=== PATIENT | female | born 1980 | race Caucasian/White ===

== ENCOUNTER 2017-11-09 17:51 | Emergency (ER) | payer MEDICAID ==
[~2017-11-09] VITALS: Ht 165.1 cm; Wt 133.7 kg
[~2017-11-09 17:51] MED LIST: CIPR-230 PO; CYCL-1 PO; METR500T4 PO; ONDA8TAB9 PO
[2017-11-09 19:49] LABS: BASOPHILS # (AUTO) 0.1 X10'3 (0-0.2); BASOPHILS % (AUTO) 0.7 % (0-1); EOSINOPHILS # (AUTO) 0.1 X10'3 (0-0.9); EOSINOPHILS % (AUTO) 1.1 % (0-6); HEMATOCRIT 41.6 % (35.0-45.0); HEMOGLOBIN 14.2 g/dl (12.0-16.0); LYMPHOCYTES # (AUTO) 4.6 X10'3 (1.1-4.8); LYMPHOCYTES % (AUTO) 34.4 % (21-51); MEAN CORPUSCULAR HEMOGLOBIN 30.3 PG (27.0-31.0); MEAN CORPUSCULAR HGB CONC 34.2 % (33.0-36.5); MEAN CORPUSCULAR VOLUME 88.8 FL (78-98); MEAN PLATELET VOLUME 7.8 FL (7.4-10.4); MONOCYTES # (AUTO) 0.5 X10'3 (0-0.9); MONOCYTES % (AUTO) 4.1 % (2-12); NEUTROPHILS # (AUTO) 7.9 X10'3 (1.8-7.7); NEUTROPHILS % (AUTO) 59.7 % (42-75); PLATELET COUNT 317 X10'3 (140-440); RED BLOOD COUNT 4.69 X10'6 (4.20-5.60); RED CELL DISTRIBUTION WIDTH 13.3 % (11.5-14.5); WHITE BLOOD COUNT 13.3 X10'3 (4.5-11.0)
[2017-11-09 19:56] LABS: INR 0.9 INR; PROTHROMBIN TIME 9.6 SECONDS (9.0-12.0)
[2017-11-09 20:02] LABS: ALANINE AMINOTRANSFERASE 66 U/L (12-78); ALBUMIN 3.4 G/DL (3.4-5.0); ALBUMIN/GLOBULIN RATIO 0.8 (1.1-1.5); ALKALINE PHOSPHATASE 64 IU/L (46-116); ANION GAP 8 (8-16); ASPARTATE AMINO TRANSFERASE 31 U/L (10-37); BILIRUBIN,TOTAL 0.2 MG/DL (0.1-1.0); BLOOD UREA NITROGEN 12 MG/DL (7-18); CALCIUM 8.9 MG/DL (8.5-10.1); CHLORIDE 105 MMOL/L (99-107); GLUCOSE 118 MG/DL (70-104); SODIUM 139 MMOL/L (135-145); TOTAL CARBON DIOXIDE 25.7 MMOL/L (24-32); TOTAL PROTEIN 7.6 G/DL (6.4-8.2); eGFR 80 ML/MIN
[2017-11-09 20:41] LABS: CLARITY,URINE SLIGHTLY CLOUDY (Clear); COLOR,URINE YELLOW (Yellow); GLUCOSE, URINE NEGATIVE (Neg); KETONES,URINE NEGATIVE (Neg); LEUKOCYTE ESTERASE ,URINE NEGATIVE (Neg); NITRITES, URINE NEGATIVE (Neg); OCCULT BLOOD,URINE NEGATIVE (Neg); PROTEIN,URINE NEGATIVE (Neg); UROBILINOGEN,URINE 0.2 E.U/dL (0.2-1.0)
[2017-11-09 20:45] LABS: UA COLLECTION TYPE CLN CATCH MIDSTREAM
[2017-11-09 20:50] LABS: BACTERIA,URINE 2+ /HPF (Neg); MUCUS STRANDS FEW /LPF (Neg); RBC,URINE 0-2 /HPF (0-2); SQUAMOUS EPITHELIAL CELL,UR MANY /LPF (FEW); WBC,URINE 0-4 /HPF (0-4)
[2017-11-09] MEDS ORDERED: METR500T4 PO (20:57)
[2017-11-09] MEDS ORDERED: HYDR-565 PO (20:57)
[2017-11-09] MEDS ORDERED: CIPR-230 PO (20:57)
[2017-11-09 21:00] VITALS: BP 158/95
== END 2017-11-09 21:13 | disposition home or self-care (01) ==
LOC: ER 17:51
DX: K57.92 Diverticulitis of intestine, part unspecified, without perforation or abscess without bleeding (principal); F12.10 Cannabis abuse, uncomplicated; I10 Essential (primary) hypertension; K21.9 Gastro-esophageal reflux disease without esophagitis; M19.90 Unspecified osteoarthritis, unspecified site
CPT/HCPCS: 36415; 80053; 81001; 85025; 85610

== ENCOUNTER 2018-01-03 17:42 | Emergency (ER) | payer MEDICAID ==
[~2018-01-03] VITALS: Ht 165.1 cm; Wt 142.9 kg
[2018-01-03 18:22] LABS: BASOPHILS # (AUTO) 0.1 X10'3 (0-0.2); BASOPHILS % (AUTO) 0.8 % (0-1); EOSINOPHILS # (AUTO) 0.2 X10'3 (0-0.9); EOSINOPHILS % (AUTO) 1.1 % (0-6); HEMATOCRIT 44.6 % (35.0-45.0); HEMOGLOBIN 15.4 g/dl (12.0-16.0); LYMPHOCYTES # (AUTO) 4.2 X10'3 (1.1-4.8); LYMPHOCYTES % (AUTO) 30.2 % (21-51); MEAN CORPUSCULAR HEMOGLOBIN 29.9 PG (27.0-31.0); MEAN CORPUSCULAR HGB CONC 34.6 % (33.0-36.5); MEAN CORPUSCULAR VOLUME 86.5 FL (78-98); MEAN PLATELET VOLUME 7.9 FL (7.4-10.4); MONOCYTES # (AUTO) 0.4 X10'3 (0-0.9); MONOCYTES % (AUTO) 2.8 % (2-12); NEUTROPHILS % (AUTO) 65.1 % (42-75); PLATELET COUNT 346 X10'3 (140-440); RED BLOOD COUNT 5.15 X10'6 (4.20-5.60); RED CELL DISTRIBUTION WIDTH 13.3 % (11.5-14.5); WHITE BLOOD COUNT 13.9 X10'3 (4.5-11.0)
[2018-01-03 18:24] LABS: URINE HCG NEGATIVE (NEG)
[2018-01-03 18:27] LABS: CLARITY,URINE CLOUDY (Clear); COLOR,URINE YELLOW (Yellow); GLUCOSE, URINE NEGATIVE (Neg); KETONES,URINE NEGATIVE (Neg); LEUKOCYTE ESTERASE ,URINE NEGATIVE (Neg); NITRITES, URINE NEGATIVE (Neg); OCCULT BLOOD,URINE NEGATIVE (Neg); PH,URINE 5.5 (4.8-8.0); PROTEIN,URINE NEGATIVE (Neg); UROBILINOGEN,URINE 0.2 E.U/dL (0.2-1.0)
[2018-01-03 18:31] LABS: UA COLLECTION TYPE CLN CATCH MIDSTREAM
[2018-01-03 18:32] LABS: INR 0.9 INR; PROTHROMBIN TIME 9.5 SECONDS (9.0-12.0)
[2018-01-03 18:36] LABS: ALANINE AMINOTRANSFERASE 50 U/L (12-78); ALBUMIN 3.5 G/DL (3.4-5.0); ALBUMIN/GLOBULIN RATIO 0.7 (1.1-1.5); ALKALINE PHOSPHATASE 85 IU/L (46-116); ANION GAP 11 (8-16); ASPARTATE AMINO TRANSFERASE 27 U/L (10-37); BILIRUBIN,TOTAL 0.2 MG/DL (0.1-1.0); BLOOD UREA NITROGEN 10 MG/DL (7-18); BUN/CREATININE RATIO 10.9 (6.6-38.0); CALCIUM 8.8 MG/DL (8.5-10.1); CHLORIDE 103 MMOL/L (99-107); CREATININE 0.92 MG/DL (0.40-0.90); GLUCOSE 174 MG/DL (70-104); POTASSIUM 4.2 MMOL/L (3.5-5.1); SODIUM 139 MMOL/L (135-145); TOTAL CARBON DIOXIDE 24.9 MMOL/L (24-32); TOTAL PROTEIN 8.2 G/DL (6.4-8.2); eGFR 68 ML/MIN
[2018-01-03 18:56] LABS: BACTERIA,URINE 3+ /HPF (Neg); RBC,URINE NONE SEEN /HPF (0-2); SQUAMOUS EPITHELIAL CELL,UR MANY /LPF (FEW); WBC,URINE 0-4 /HPF (0-4)
[2018-01-03] MEDS ORDERED: HYDR-565 PO (20:19)
[2018-01-03] MEDS ORDERED: HYDROcodone/acetaminophen 10/325mg tab PO ONE (20:20)
[2018-01-03 20:36] VITALS: BP 129/89
== END 2018-01-03 20:38 | disposition home or self-care (01) ==
LOC: ER 17:42
DX: R10.32 Left lower quadrant pain (principal); F12.90 Cannabis use, unspecified, uncomplicated; Z87.19 Personal history of other diseases of the digestive system; I10 Essential (primary) hypertension; K21.9 Gastro-esophageal reflux disease without esophagitis; M19.90 Unspecified osteoarthritis, unspecified site; Z79.899 Other long term (current) drug therapy
CPT/HCPCS: 36415; 80053; 81001; 81025; 85025; 85610; 99284

== ENCOUNTER 2018-02-12 12:59 | Emergency (ER) | payer MEDICAID ==
[~2018-02-12] VITALS: Ht 165.1 cm; Wt 144.0 kg
[2018-02-12] MEDS ORDERED: METR500T4 PO (13:42)
[2018-02-12] MEDS ORDERED: CIPR-230 PO (13:42)
[2018-02-12 13:49] VITALS: BP 161/118
== END 2018-02-12 13:50 | disposition home or self-care (01) ==
LOC: ER 13:00
DX: K57.92 Diverticulitis of intestine, part unspecified, without perforation or abscess without bleeding (principal); I10 Essential (primary) hypertension; K21.9 Gastro-esophageal reflux disease without esophagitis; F12.90 Cannabis use, unspecified, uncomplicated; Z98.890 Other specified postprocedural states; Z79.2 Long term (current) use of antibiotics; Z79.899 Other long term (current) drug therapy
CPT/HCPCS: 99283

== ENCOUNTER 2023-12-02 14:43 | Emergency (ER) | payer MEDICAID ==
[~2023-12-02] VITALS: Ht 167.6 cm; Wt 115.9 kg
[~2023-12-02 14:43] MED LIST changes: +CIPR-202 PO; -CIPR-230 PO; +METR-159 PO; -METR500T4 PO
[2023-12-02 14:46] VITALS: BP 138/89; PULSE 94; RESP 16; TEMP 98; O2SAT 99
== END 2023-12-02 16:13 ==
LOC: ER 14:43
DX: Z04.1 Encounter for examination and observation following transport accident (principal); I10 Essential (primary) hypertension; K21.9 Gastro-esophageal reflux disease without esophagitis; M19.90 Unspecified osteoarthritis, unspecified site; F12.90 Cannabis use, unspecified, uncomplicated; Z79.2 Long term (current) use of antibiotics; Z79.899 Other long term (current) drug therapy; V89.2XXA Person injured in unspecified motor-vehicle accident, traffic, initial encounter; Y93.89 Activity, other specified; Y92.89 Other specified places as the place of occurrence of the external cause; Y99.8 Other external cause status
CPT/HCPCS: 99283

== ENCOUNTER 2024-02-21 21:39 | Inpatient (IN) | payer MEDICAID ==
[~2024-02-21] VITALS: Ht 167.6 cm; Wt 116.8 kg
[2024-02-21 22:18] LABS: BILIRUBIN,URINE MODERATE (Neg); CLARITY,URINE CLOUDY (Clear); COLOR,URINE YELLOW (Yellow); GLUCOSE, URINE NEGATIVE (Neg); KETONES,URINE TRACE mg/dl (Neg); LEUKOCYTE ESTERASE ,URINE NEGATIVE (Neg); OCCULT BLOOD,URINE TRACE-INTACT (Neg); PH,URINE 5.5 (4.8-8.0); PROTEIN,URINE 100 mg/dl (Neg)
[2024-02-21 22:19] LABS: NITRITES, URINE NEGATIVE (Neg); UA COLLECTION TYPE CLN CATCH MIDSTREAM; URINE HCG NEGATIVE (NEG)
[2024-02-21 22:20] LABS: BASOPHILS % (AUTO) 0.3 % (0-1); EOSINOPHILS # (AUTO) 0.1 X10'3 (0-0.9); EOSINOPHILS % (AUTO) 0.7 % (0-6); HEMATOCRIT 48.4 % (35.0-45.0); HEMOGLOBIN 16.2 g/dl (12.0-16.0); LYMPHOCYTES # (AUTO) 3.1 X10'3 (1.1-4.8); LYMPHOCYTES % (AUTO) 23.5 % (21-51); MEAN CORPUSCULAR HGB CONC 33.4 g/dL (33.0-36.5); MEAN CORPUSCULAR VOLUME 89.8 FL (78-98); MEAN PLATELET VOLUME 7.6 FL (7.4-10.4); MONOCYTES # (AUTO) 0.5 X10'3 (0-0.9); MONOCYTES % (AUTO) 4.1 % (2-12); NEUTROPHILS # (AUTO) 9.4 X10'3 (1.8-7.7); NEUTROPHILS % (AUTO) 71.4 % (42-75); PLATELET COUNT 371 X10'3 (140-440); RED BLOOD COUNT 5.39 X10'6 (4.20-5.60); WHITE BLOOD COUNT 13.1 X10'3 (4.5-11.0)
[2024-02-21 22:24] LABS: BACTERIA,URINE 2+ /HPF (Neg); MUCUS STRANDS MANY /LPF (Neg); SQUAMOUS EPITHELIAL CELL,UR MANY /LPF (FEW); TRANSITIONAL EPI CELLS,URINE FEW /HPF
[2024-02-21 22:25] LABS: WBC CLUMPS,URINE FEW /HPF (NEGATIVE)
[2024-02-21 22:34] LABS: ALANINE AMINOTRANSFERASE 23 U/L (12-78); ALBUMIN 3.4 G/DL (3.4-5.0); ALBUMIN/GLOBULIN RATIO 0.7 (1.1-1.5); ALKALINE PHOSPHATASE 78 IU/L (46-116); ANION GAP 11 (8-16); ASPARTATE AMINO TRANSFERASE 14 U/L (10-37); BILIRUBIN,TOTAL 0.5 MG/DL (0.1-1.0); BLOOD UREA NITROGEN 11 MG/DL (7-18); BUN/CREATININE RATIO 11.2 (10.0-20.0); CALCIUM 8.9 MG/DL (8.5-10.1); CHLORIDE 102 MMOL/L (99-107); CREATININE 0.98 MG/DL (0.40-0.90); GLUCOSE 139 MG/DL (70-104); LIPASE 32 U/L (16-77); POTASSIUM 3.5 MMOL/L (3.5-5.1); SODIUM 138 MMOL/L (135-145); TOTAL CARBON DIOXIDE 25.5 MMOL/L (24-32); eCRCL 68 ML/MIN; eGFR 61 ML/MIN
[2024-02-21] MEDS ORDERED: iohexol 350MG/ML 100ml bottle IV ONE (23:44)
[2024-02-22] VITALS (9 sets, daily range): BP systolic 134–157; BP diastolic 80–92; PULSE 79–92; RESP 14–22; TEMP 97.9; O2SAT 92–99
[2024-02-22] MEDS: ondansetron/PF 4mg/2ml inj IV ONE (00:14)
[2024-02-22] MEDS: HYDROmorphone 1 mg/ml syringe IV ONE ×2 (00:17→05:22)
[2024-02-22] MEDS: normal saline 1000ml 1,000 ML IV ONE (00:53)
[2024-02-22] MEDS: CefTRIAXone/D5W-Rocephin 1gm 50 ML IV ONE (00:53)
[2024-02-22] MEDS ORDERED: LISI20TA28 PO (02:00)
[2024-02-22] MEDS: metroNIDAZOLE-Flagyl 500mg/NS 100 ML IV STA (02:21)
[2024-02-22] MEDS: LIDOcaine 2% Viscous 15ml cup MM PRN (02:42)
[2024-02-22] MEDS: midazolam 1 mg/ML 2ml injection IV ONE (02:43)
[2024-02-22] MEDS ORDERED: mag hydrox/Alum hydrox/simeth 30ml oral suspension PO PRN (05:30)
[2024-02-22] MEDS ORDERED: HYDROmorphone/PF 0.2 MG/ML SYRINGE IV PRN (05:30)
[2024-02-22] MEDS ORDERED: magnesium Cl slow-release 64mg tablet PO PRN (05:30)
[2024-02-22] MEDS ORDERED: ondansetron/PF 4mg/2ml inj IV PRN ×3 (05:30→22:10)
[2024-02-22] MEDS ORDERED: acetaminophen 325mg tablet PO PRN (05:30)
[2024-02-22] MEDS ORDERED: potassium Cl 20 mEq SR tablet PO PRN ×2 (05:30)
[2024-02-22] MEDS: normal saline 1000ml 1,000 ML IV SCH (06:04)
[2024-02-22] MEDS: docusate sod 100mg capsule PO SCH (08:00)
[2024-02-22] MEDS: metroNIDAZOLE-Flagyl 500mg/NS 100 ML IV SCH (10:39)
[2024-02-22] MEDS: lisinopril 10 MG tablet PO ONE (10:52)
[2024-02-22] MEDS ORDERED: morphine 2 MG/ML inj. syringe IV PRN (17:45)
[2024-02-22] MEDS ORDERED: meperidine/PF 25mg/ml syringe IV PRN ×3 (17:45)
[2024-02-22] MEDS ORDERED: morphine 4 MG/ML inj SYRINge IV PRN (17:45)
[2024-02-22] MEDS ORDERED: labetalol 20mg/4ml (5mg/ml) syringe IV PRN (17:45)
[2024-02-22] MEDS ORDERED: proCHLORperazine 10 MG/2 ml inj IV PRN (17:45)
[2024-02-22] MEDS ORDERED: sevoflurane 250ml liquid IH ONE (17:49)
[2024-02-22] MEDS ORDERED: fentaNYL /PF 50mcg/ml 5ml ampule ONE (17:52)
[2024-02-22] MEDS ORDERED: midazolam 1 mg/ML 2ml injection ONE (17:52)
[2024-02-22] MEDS ORDERED: rocuronium 10mg/ml inj IV ONE ×3 (17:54→21:50)
[2024-02-22] MEDS ORDERED: propofol inj 20 ML IV ONE (17:55)
[2024-02-22] MEDS ORDERED: ceFOXitin 1000 MG inj ONE ×2 (18:23)
[2024-02-22] MEDS ORDERED: dexamethasone sod phosphate 4mg/ml inj. ONE (18:33)
[2024-02-22] MEDS: BUPIVAcaine 2.5mg/ml inj 50ml vial (contains preservative) SQ ONE (19:12)
[2024-02-22] MEDS ORDERED: fentaNYL/PF 50MCG/1 ML 2ML syringe ONE (20:39)
[2024-02-22] MEDS ORDERED: acetaminophen 1,000mg/100ml IV 100 ML IV ONE (21:22)
[2024-02-22] MEDS ORDERED: ondansetron/PF 4mg/2ml inj ONE (21:49)
[2024-02-22] MEDS ORDERED: neostigmine methylsulfate 1 MG/ML 10ml vial ONE (21:50)
[2024-02-22] MEDS ORDERED: glycopyrrolate 0.2mg/ml inj ONE (21:50)
[2024-02-22] MEDS ORDERED: ketorolac trometh 30MG/ML vial 30 MG/ML VIAL ONE (21:58)
[2024-02-22] MEDS ORDERED: naloxone 0.4 mg/ml inj IV PRN (22:10)
[2024-02-23] VITALS (11 sets, daily range): BP systolic 119–150; BP diastolic 74–90; PULSE 89–113; RESP 14–21; TEMP 97.2–98.6; O2SAT 91–99
[2024-02-23] MEDS: ringers solution, lacted 1,000 ML IV SCH (00:14)
[2024-02-23] MEDS: BUPIVAcaine 2.5mg/ml inj 50ml vial (contains preservative) ONE (00:14)
[2024-02-23] MEDS: CefTRIAXone/D5W-Rocephin 1gm 50 ML IV SCH (00:27)
[2024-02-23] MEDS: HYDROmorphone inj. 0.5 MG/0.5 ML DISP.SYRIN IV PRN (00:32)
[2024-02-23 07:14] LABS: BASOPHILS # (AUTO) 0.1 X10'3 (0-0.2); BASOPHILS % (AUTO) 0.3 % (0-1); EOSINOPHILS % (AUTO) 0 % (0-6); HEMOGLOBIN 14.6 g/dl (12.0-16.0); LYMPHOCYTES # (AUTO) 1.7 X10'3 (1.1-4.8); LYMPHOCYTES % (AUTO) 10.6 % (21-51); MONOCYTES # (AUTO) 0.6 X10'3 (0-0.9); MONOCYTES % (AUTO) 3.9 % (2-12); NEUTROPHILS % (AUTO) 85.2 % (42-75)
[2024-02-23 07:16] LABS: HEMATOCRIT 45.2 % (35.0-45.0); MEAN CORPUSCULAR HGB CONC 32.3 g/dL (33.0-36.5); MEAN PLATELET VOLUME 8.1 FL (7.4-10.4); NEUTROPHILS # (AUTO) 13.8 X10'3 (1.8-7.7); PLATELET COUNT 359 X10'3 (140-440); RED BLOOD COUNT 5.03 X10'6 (4.20-5.60); RED CELL DISTRIBUTION WIDTH 13.5 % (11.5-14.5); WHITE BLOOD COUNT 16.2 X10'3 (4.5-11.0)
[2024-02-23 07:34] LABS: ALANINE AMINOTRANSFERASE 21 U/L (12-78); ALBUMIN 2.7 G/DL (3.4-5.0); ALBUMIN/GLOBULIN RATIO 0.6 (1.1-1.5); ALKALINE PHOSPHATASE 62 IU/L (46-116); ANION GAP 10 (8-16); ASPARTATE AMINO TRANSFERASE 19 U/L (10-37); BILIRUBIN,TOTAL 0.4 MG/DL (0.1-1.0); BLOOD UREA NITROGEN 10 MG/DL (7-18); BUN/CREATININE RATIO 12.3 (10.0-20.0); CALCIUM 8.4 MG/DL (8.5-10.1); CHLORIDE 104 MMOL/L (99-107); CREATININE 0.81 MG/DL (0.40-0.90); GLUCOSE 118 MG/DL (70-104); MAGNESIUM 1.9 MG/DL (1.5-2.4); PHOSPHORUS 4.9 MG/DL (2.3-4.5); SODIUM 138 MMOL/L (135-145); TOTAL CARBON DIOXIDE 23.9 MMOL/L (24-32); TOTAL PROTEIN 7.2 G/DL (6.4-8.2); eCRCL 82 ML/MIN; eGFR 76 ML/MIN
[2024-02-24] MEDS: HYDROcodone/acetaminophen 10/325mg tab PO PRN (05:45)
[2024-02-24 06:00] VITALS: BP 147/82; PULSE 103; RESP 16; TEMP 98.6; O2SAT 92
[2024-02-24 06:37] LABS: BASOPHILS # (AUTO) 0.1 X10'3 (0-0.2); BASOPHILS % (AUTO) 0.4 % (0-1); EOSINOPHILS # (AUTO) 0.1 X10'3 (0-0.9); EOSINOPHILS % (AUTO) 0.4 % (0-6); HEMOGLOBIN 14.4 g/dl (12.0-16.0); LYMPHOCYTES # (AUTO) 2.5 X10'3 (1.1-4.8); LYMPHOCYTES % (AUTO) 17.8 % (21-51); MEAN CORPUSCULAR HEMOGLOBIN 29.7 PG (27.0-31.0); MEAN CORPUSCULAR HGB CONC 32.8 g/dL (33.0-36.5); MEAN CORPUSCULAR VOLUME 90.5 FL (78-98); MEAN PLATELET VOLUME 7.8 FL (7.4-10.4); MONOCYTES # (AUTO) 0.7 X10'3 (0-0.9); MONOCYTES % (AUTO) 5.2 % (2-12); NEUTROPHILS # (AUTO) 10.6 X10'3 (1.8-7.7); NEUTROPHILS % (AUTO) 76.2 % (42-75); PLATELET COUNT 315 X10'3 (140-440); RED BLOOD COUNT 4.87 X10'6 (4.20-5.60); RED CELL DISTRIBUTION WIDTH 13.8 % (11.5-14.5); WHITE BLOOD COUNT 13.9 X10'3 (4.5-11.0)
[2024-02-24 06:56] LABS: ALANINE AMINOTRANSFERASE 17 U/L (12-78); ALBUMIN 2.7 G/DL (3.4-5.0); ALBUMIN/GLOBULIN RATIO 0.6 (1.1-1.5); ALKALINE PHOSPHATASE 64 IU/L (46-116); ANION GAP 9 (8-16); ASPARTATE AMINO TRANSFERASE 14 U/L (10-37); BILIRUBIN,TOTAL 0.7 MG/DL (0.1-1.0); BLOOD UREA NITROGEN 9 MG/DL (7-18); CALCIUM 8.5 MG/DL (8.5-10.1); CHLORIDE 102 MMOL/L (99-107); CREATININE 0.75 MG/DL (0.40-0.90); GLUCOSE 123 MG/DL (70-104); MAGNESIUM 1.9 MG/DL (1.5-2.4); PHOSPHORUS 3.2 MG/DL (2.3-4.5); POTASSIUM 3.8 MMOL/L (3.5-5.1); SODIUM 136 MMOL/L (135-145); TOTAL CARBON DIOXIDE 24.6 MMOL/L (24-32); TOTAL PROTEIN 7.4 G/DL (6.4-8.2); eCRCL 89 ML/MIN; eGFR 84 ML/MIN
[2024-02-24 08:45] VITALS: RESP 16; O2SAT 92
[2024-02-24 10:00] VITALS: BP_SYST 168; BP_SYST 170; BP_DIAS 78; BP_DIAS 92; PULSE 106; PULSE 127; RESP 14; RESP 18; TEMP 97.9; TEMP 98.4; O2SAT 97
[2024-02-24] MEDS: magnesium hydroxide 30ml (MOM) UD suspension PO PRN (10:34)
[2024-02-24] MEDS: ketorolac trometh 30MG/ML vial 30 MG/ML VIAL IV PRN (10:34)
[2024-02-24] MEDS ORDERED: MAGN400O6 PO (13:54)
[2024-02-24] MEDS ORDERED: AMOX-580 PO (13:54)
[2024-02-24] MEDS ORDERED: HYDR-3965 PO (13:54)
[2024-02-24] MEDS ORDERED: ketorolac trometh 30MG/ML vial 30 MG/ML VIAL IM SCH (14:00)
[2024-02-24 14:08] VITALS: BP 124/86
[2024-02-24] MEDS: hydrALAZINE 20mg/ml inj. IV ONE (14:10)
[2024-02-24 14:46] VITALS: RESP 16
[2024-02-24] MEDS ORDERED: magnesium hydroxide 30ml (MOM) UD suspension PO SCH (20:00)
== END 2024-02-24 15:15 | disposition home or self-care (01) | DRG 227 ==
LOC: ER 21:40 → ED HOLD 02-22 03:13 → ORTHO 4S 02-22 23:15
PROVIDERS: ADMIT Internal Medicine Critical Care Medicine; ATTEND Family Medicine
PROC: 0WJF4ZZ Inspection of Abdominal Wall, Percutaneous Endoscopic Approach (ICD-10-PCS; 2024-02-22)
PROC: 8E0W4CZ Robotic Assisted Procedure of Trunk Region, Percutaneous Endoscopic Approach (ICD-10-PCS; 2024-02-22)
PROC: BW211ZZ Computerized Tomography (CT Scan) of Abdomen and Pelvis using Low Osmolar Contrast (ICD-10-PCS; 2024-02-22)
PROC: 0WUF0JZ Supplement Abdominal Wall with Synthetic Substitute, Open Approach (ICD-10-PCS; principal; 2024-02-22 17:49)
DX: K43.0 Incisional hernia with obstruction, without gangrene (principal); N17.9 Acute kidney failure, unspecified; K56.51 Intestinal adhesions [bands], with partial obstruction; E66.01 Morbid (severe) obesity due to excess calories; I10 Essential (primary) hypertension; L03.818 Cellulitis of other sites; E86.0 Dehydration; K21.9 Gastro-esophageal reflux disease without esophagitis; N39.0 Urinary tract infection, site not specified; Z79.899 Other long term (current) drug therapy; Z98.891 History of uterine scar from previous surgery; Z90.49 Acquired absence of other specified parts of digestive tract; Z68.41 Body mass index [BMI] 40.0-44.9, adult; Z53.31 Laparoscopic surgical procedure converted to open procedure
CPT/HCPCS: 36415; 74018; 74177; 80053; 81001; 81025; 83690; 83735; 84100; 84132; 85025; 86885; 86900; 86901; 87081; 99285; A4215; A4615; A4618; A6253; A6258; C1758; C1781; G0378; J0131; J0694; J0696; J1100; J1170; J1885; J2250; J2405; J2704; J2710; J3010; J3490; J7030; J7120; Q9967

== ENCOUNTER 2024-03-11 21:40 | Inpatient (IN) | payer MEDICAID ==
[~2024-03-11] VITALS: Ht 167.6 cm; Wt 119.7 kg
[~2024-03-11 21:40] MED LIST changes: +AMOX-580 PO; -CIPR-202 PO; -CYCL-1 PO; +HYDR-3965 PO; +LISI20TA28 PO; +MAGN400O6 PO; -METR-159 PO; -ONDA8TAB9 PO
[2024-03-12] VITALS (22 sets, daily range): BP systolic 109–180; BP diastolic 58–110; PULSE 82–103; RESP 14–24; TEMP 96.6–99; O2SAT 91–100
[2024-03-12] MEDS: diatrozoate meglu/diatrozoate sod (37% iodine) 120ML oral solution RC ONE (01:05)
[2024-03-12] MEDS: diatr meglu/diatrizoate 30ml oral sol.-(3 dose) bottle PO ONE (01:15)
[2024-03-12 02:21] LABS: BASOPHILS # (AUTO) 0.1 X10'3 (0-0.2); BASOPHILS % (AUTO) 0.6 % (0-1); EOSINOPHILS # (AUTO) 0.2 X10'3 (0-0.9); EOSINOPHILS % (AUTO) 1.8 % (0-6); HEMATOCRIT 35.2 % (35.0-45.0); HEMOGLOBIN 11.7 g/dl (12.0-16.0); LYMPHOCYTES # (AUTO) 2.9 X10'3 (1.1-4.8); LYMPHOCYTES % (AUTO) 24.2 % (21-51); MEAN CORPUSCULAR HEMOGLOBIN 29.7 PG (27.0-31.0); MEAN CORPUSCULAR HGB CONC 33.4 g/dL (33.0-36.5); MEAN CORPUSCULAR VOLUME 88.9 FL (78-98); MEAN PLATELET VOLUME 6.9 FL (7.4-10.4); MONOCYTES # (AUTO) 0.7 X10'3 (0-0.9); MONOCYTES % (AUTO) 5.6 % (2-12); NEUTROPHILS # (AUTO) 8.1 X10'3 (1.8-7.7); NEUTROPHILS % (AUTO) 67.8 % (42-75); PLATELET COUNT 500 X10'3 (140-440); RED BLOOD COUNT 3.95 X10'6 (4.20-5.60); RED CELL DISTRIBUTION WIDTH 13.3 % (11.5-14.5)
[2024-03-12 02:22] LABS: ALBUMIN 2.3 G/DL (3.4-5.0); ANION GAP 7 (8-16); BLOOD UREA NITROGEN 5 MG/DL (7-18); BUN/CREATININE RATIO 7.1 (10.0-20.0); CALCIUM 8.1 MG/DL (8.5-10.1); CHLORIDE 106 MMOL/L (99-107); GLUCOSE 111 MG/DL (70-104); LIPASE 35 U/L (16-77); POTASSIUM 4.1 MMOL/L (3.5-5.1); SODIUM 139 MMOL/L (135-145); TOTAL CARBON DIOXIDE 26.5 MMOL/L (24-32); eCRCL 95 ML/MIN; eGFR 90 ML/MIN
[2024-03-12] MEDS ORDERED: iohexol 300mg/ml 100ml inj. ONE (02:40)
[2024-03-12] MEDS: morphine 4 MG/ML inj SYRINge IV ONE (02:53)
[2024-03-12] MEDS: ondansetron/PF 4mg/2ml inj IV ONE (02:53)
[2024-03-12] MEDS: VANCOMYCIN 1,500MG in normal saline IV soln 300 ML IV ONE (03:23)
[2024-03-12] MEDS ORDERED: ondansetron/PF 4mg/2ml inj IV PRN ×3 (05:30→14:55)
[2024-03-12] MEDS ORDERED: magnesium Cl slow-release 64mg tablet PO PRN (05:30)
[2024-03-12] MEDS ORDERED: acetaminophen 325mg tablet PO PRN (05:30)
[2024-03-12] MEDS ORDERED: potassium Cl 20 mEq SR tablet PO PRN ×2 (05:30)
[2024-03-12] MEDS ORDERED: mag hydrox/Alum hydrox/simeth 30ml oral suspension PO PRN (05:30)
[2024-03-12] MEDS ORDERED: magnesium sulf-water 4G/100mL 100 ML IV PRN (05:30)
[2024-03-12] MEDS ORDERED: magnesium hydroxide 30ml (MOM) UD suspension PO PRN (05:30)
[2024-03-12] MEDS ORDERED: magnesium sulf-water 2g/50mL 50 ML IV PRN (05:30)
[2024-03-12] MEDS ORDERED: potassium Cl 40MEQ/1/2NS 520ml 520 ML IV PRN (05:30)
[2024-03-12] MEDS: HYDROmorphone 1 mg/ml syringe IV ONE ×2 (05:37→06:21)
[2024-03-12] MEDS: normal saline 1000ml 1,000 ML IV SCH (05:54)
[2024-03-12 06:07] LABS: BILIRUBIN,URINE NEGATIVE (Neg); CLARITY,URINE CLEAR (Clear); COLOR,URINE YELLOW (Yellow); GLUCOSE, URINE NEGATIVE (Neg); KETONES,URINE NEGATIVE (Neg); LEUKOCYTE ESTERASE ,URINE NEGATIVE (Neg); OCCULT BLOOD,URINE NEGATIVE (Neg); PH,URINE 5.5 (4.8-8.0); PROTEIN,URINE NEGATIVE (Neg); UROBILINOGEN,URINE 0.2 E.U/dL (0.2-1.0)
[2024-03-12 06:14] LABS: URINE AMPHETAMINE SCREEN POSITIVE (Neg); URINE BARBITUATE SCREEN NEGATIVE (Neg); URINE BENZODIAZEPINES SCREEN NEGATIVE (Neg); URINE CANNABINOID SCREEN NEGATIVE (Neg); URINE COCAINE SCREEN NEGATIVE (Neg); URINE METHADONE SCREEN NEGATIVE (Neg); URINE OPIATE SCREEN POSITIVE (Neg); URINE PHENCYCLIDINE SCREEN NEGATIVE (Neg)
[2024-03-12] MEDS: HYDROcodone/acetaminophen 10/325mg tab PO ONE (06:19)
[2024-03-12] MEDS: tizanidine 4mg tablet PO ONE (06:21)
[2024-03-12 06:52] LABS: NITRITES, URINE NEGATIVE (Neg); UA COLLECTION TYPE URINAL
[2024-03-12] MEDS: K and/or MAG REPLACEMENT MC SCH (08:00)
[2024-03-12] MEDS: docusate sod 100mg capsule PO SCH (08:00)
[2024-03-12] MEDS: HYDROcodone/acetaminophen 10/325mg tab PO PRN (12:48)
[2024-03-12] MEDS ORDERED: sevoflurane 250ml liquid IH ONE (13:55)
[2024-03-12] MEDS ORDERED: midazolam 1 mg/ML 2ml injection ONE (13:58)
[2024-03-12] MEDS ORDERED: fentaNYL /PF 50mcg/ml 5ml ampule ONE (13:58)
[2024-03-12] MEDS ORDERED: LIDOcaine 2% (20mg/ml) 5ml vial ONE (13:59)
[2024-03-12] MEDS ORDERED: propofol inj 20 ML IV ONE (14:00)
[2024-03-12] MEDS ORDERED: morphine 4 MG/ML inj SYRINge IV PRN (14:05)
[2024-03-12] MEDS ORDERED: meperidine/PF 25mg/ml syringe IV PRN ×3 (14:05)
[2024-03-12] MEDS ORDERED: morphine 2 MG/ML inj. syringe IV PRN (14:05)
[2024-03-12] MEDS ORDERED: labetalol 20mg/4ml (5mg/ml) syringe IV PRN (14:05)
[2024-03-12] MEDS ORDERED: proCHLORperazine 10 MG/2 ml inj IV PRN (14:05)
[2024-03-12] MEDS ORDERED: enalaprilat dihydrate 2.5mg/2ml vial IV PRN (14:05)
[2024-03-12] MEDS ORDERED: dexamethasone sod phosphate 4mg/ml inj. ONE (14:27)
[2024-03-12] MEDS ORDERED: ondansetron/PF 4mg/2ml inj ONE (14:48)
[2024-03-12] MEDS ORDERED: HYDROcodone/acetaminophen 5mg/325mg tablet PO PRN (14:55)
[2024-03-12] MEDS ORDERED: naloxone 0.4 mg/ml inj IV PRN (14:55)
[2024-03-12] MEDS: BUPIVAcaine 2.5mg/ml inj 50ml vial (contains preservative) ONE (16:42)
[2024-03-12] MEDS: ringers solution, lacted 1,000 ML IV SCH (16:42)
[2024-03-12] MEDS: sugammadex 200mg/2ml injection IV ONE (16:42)
[2024-03-13 05:05] LABS: MEAN CORPUSCULAR VOLUME 88.9 FL (78-98); RED CELL DISTRIBUTION WIDTH 13.1 % (11.5-14.5)
[2024-03-13 05:09] LABS: BASOPHILS # (AUTO) 0.1 X10'3 (0-0.2); BASOPHILS % (AUTO) 0.4 % (0-1); EOSINOPHILS % (AUTO) 0 % (0-6); HEMATOCRIT 40.8 % (35.0-45.0); HEMOGLOBIN 13.4 g/dl (12.0-16.0); LYMPHOCYTES # (AUTO) 1.8 X10'3 (1.1-4.8); LYMPHOCYTES % (AUTO) 11.7 % (21-51); MEAN CORPUSCULAR HEMOGLOBIN 29.2 PG (27.0-31.0); MEAN CORPUSCULAR HGB CONC 32.9 g/dL (33.0-36.5); MEAN PLATELET VOLUME 7.2 FL (7.4-10.4); MONOCYTES # (AUTO) 0.7 X10'3 (0-0.9); MONOCYTES % (AUTO) 4.6 % (2-12); NEUTROPHILS % (AUTO) 83.3 % (42-75); PLATELET COUNT 608 X10'3 (140-440); RED BLOOD COUNT 4.59 X10'6 (4.20-5.60); WHITE BLOOD COUNT 15.7 X10'3 (4.5-11.0)
[2024-03-13 05:19] LABS: ALANINE AMINOTRANSFERASE 14 U/L (12-78); ALBUMIN 2.1 G/DL (3.4-5.0); ALBUMIN/GLOBULIN RATIO 0.4 (1.1-1.5); ALKALINE PHOSPHATASE 79 IU/L (46-116); ANION GAP 6 (8-16); ASPARTATE AMINO TRANSFERASE 15 U/L (10-37); BILIRUBIN,TOTAL 0.3 MG/DL (0.1-1.0); BLOOD UREA NITROGEN 4 MG/DL (7-18); BUN/CREATININE RATIO 5.9 (10.0-20.0); CALCIUM 8.8 MG/DL (8.5-10.1); CHLORIDE 104 MMOL/L (99-107); CREATININE 0.68 MG/DL (0.40-0.90); GLUCOSE 105 MG/DL (70-104); SODIUM 139 MMOL/L (135-145); TOTAL PROTEIN 7.2 G/DL (6.4-8.2); eCRCL 98 ML/MIN; eGFR > 90 ML/MIN
[2024-03-13 06:00] VITALS: BP 146/81; PULSE 92; RESP 16; TEMP 96.1; O2SAT 98
[2024-03-13 06:01] LABS: POTASSIUM 4.4 MMOL/L (3.5-5.1)
[2024-03-13] MEDS: CefTRIAXone 2gm/D5W 50ml BAG 50 ML IV SCH (07:40)
[2024-03-13 08:00] VITALS: RESP 16; O2SAT 98
[2024-03-13] MEDS: piperacillin/tazo 3.375gm/50ml 50 ML IV SCH (08:00)
[2024-03-13 18:00] VITALS: BP 143/76; PULSE 113; RESP 18; TEMP 97.5; O2SAT 98
[2024-03-13 20:00] VITALS: RESP 18; O2SAT 98
[2024-03-13 22:00] VITALS: BP 128/74; PULSE 106; RESP 20; TEMP 98.8; O2SAT 95
[2024-03-14 04:43] LABS: BASOPHILS # (AUTO) 0.1 X10'3 (0-0.2); BASOPHILS % (AUTO) 0.6 % (0-1); EOSINOPHILS # (AUTO) 0.2 X10'3 (0-0.9); HEMATOCRIT 36.6 % (35.0-45.0); HEMOGLOBIN 11.8 g/dl (12.0-16.0); LYMPHOCYTES # (AUTO) 3.7 X10'3 (1.1-4.8); LYMPHOCYTES % (AUTO) 24.2 % (21-51); MEAN CORPUSCULAR HEMOGLOBIN 28.7 PG (27.0-31.0); MEAN CORPUSCULAR HGB CONC 32.2 g/dL (33.0-36.5); MEAN CORPUSCULAR VOLUME 88.9 FL (78-98); MEAN PLATELET VOLUME 6.8 FL (7.4-10.4); MONOCYTES # (AUTO) 0.8 X10'3 (0-0.9); MONOCYTES % (AUTO) 5.4 % (2-12); NEUTROPHILS # (AUTO) 10.5 X10'3 (1.8-7.7); NEUTROPHILS % (AUTO) 68.8 % (42-75); PLATELET COUNT 517 X10'3 (140-440); RED BLOOD COUNT 4.12 X10'6 (4.20-5.60); RED CELL DISTRIBUTION WIDTH 13.6 % (11.5-14.5); WHITE BLOOD COUNT 15.2 X10'3 (4.5-11.0)
[2024-03-14 04:56] LABS: ALANINE AMINOTRANSFERASE 14 U/L (12-78); ALBUMIN/GLOBULIN RATIO 0.4 (1.1-1.5); ALKALINE PHOSPHATASE 66 IU/L (46-116); ANION GAP 5 (8-16); ASPARTATE AMINO TRANSFERASE 11 U/L (10-37); BILIRUBIN,TOTAL 0.2 MG/DL (0.1-1.0); BLOOD UREA NITROGEN 8 MG/DL (7-18); BUN/CREATININE RATIO 10.5 (10.0-20.0); CALCIUM 8.3 MG/DL (8.5-10.1); CHLORIDE 105 MMOL/L (99-107); CREATININE 0.76 MG/DL (0.40-0.90); GLUCOSE 96 MG/DL (70-104); POTASSIUM 4.1 MMOL/L (3.5-5.1); SODIUM 137 MMOL/L (135-145); TOTAL PROTEIN 6.5 G/DL (6.4-8.2); eCRCL 88 ML/MIN; eGFR 82 ML/MIN
[2024-03-14 06:00] VITALS: BP 148/89; PULSE 95; RESP 18; TEMP 97.8; O2SAT 95
[2024-03-14] MEDS: Dakins solution (1/4 strength) 473ml solution TP SCH (08:00)
[2024-03-14 10:00] VITALS: BP 156/84; PULSE 94; RESP 16; TEMP 98; O2SAT 94
[2024-03-14 18:00] VITALS: BP 154/98; PULSE 96; RESP 16; TEMP 97.9; O2SAT 96
[2024-03-14 20:00] VITALS: RESP 16; O2SAT 96
[2024-03-14 22:00] VITALS: BP 145/98; PULSE 112; RESP 22; TEMP 99.4; O2SAT 96
[2024-03-15 07:16] VITALS: BP 132/86; PULSE 82; RESP 16; TEMP 97.6; O2SAT 97
[2024-03-15 09:16] LABS: BASOPHILS # (AUTO) 0.1 X10'3 (0-0.2); BASOPHILS % (AUTO) 0.6 % (0-1); EOSINOPHILS # (AUTO) 0.3 X10'3 (0-0.9); EOSINOPHILS % (AUTO) 2.6 % (0-6); HEMOGLOBIN 12.5 g/dl (12.0-16.0); LYMPHOCYTES # (AUTO) 2.9 X10'3 (1.1-4.8); LYMPHOCYTES % (AUTO) 22.3 % (21-51); MEAN CORPUSCULAR HEMOGLOBIN 28.3 PG (27.0-31.0); MEAN CORPUSCULAR VOLUME 88.6 FL (78-98); MEAN PLATELET VOLUME 7.3 FL (7.4-10.4); MONOCYTES # (AUTO) 0.8 X10'3 (0-0.9); MONOCYTES % (AUTO) 6.5 % (2-12); NEUTROPHILS # (AUTO) 8.7 X10'3 (1.8-7.7); PLATELET COUNT 494 X10'3 (140-440); RED CELL DISTRIBUTION WIDTH 13.2 % (11.5-14.5); WHITE BLOOD COUNT 12.8 X10'3 (4.5-11.0)
[2024-03-15 09:27] LABS: ALANINE AMINOTRANSFERASE 20 U/L (12-78); ALBUMIN 2.1 G/DL (3.4-5.0); ALBUMIN/GLOBULIN RATIO 0.4 (1.1-1.5); ALKALINE PHOSPHATASE 81 IU/L (46-116); ANION GAP 9 (8-16); ASPARTATE AMINO TRANSFERASE 22 U/L (10-37); BILIRUBIN,TOTAL 0.3 MG/DL (0.1-1.0); BLOOD UREA NITROGEN 7 MG/DL (7-18); CALCIUM 8.9 MG/DL (8.5-10.1); CHLORIDE 103 MMOL/L (99-107); GLUCOSE 91 MG/DL (70-104); SODIUM 138 MMOL/L (135-145); TOTAL CARBON DIOXIDE 26.2 MMOL/L (24-32); TOTAL PROTEIN 7.1 G/DL (6.4-8.2); eCRCL 95 ML/MIN; eGFR 90 ML/MIN
[2024-03-15 09:38] LABS: POTASSIUM 4.2 MMOL/L (3.5-5.1)
[2024-03-15 10:28] VITALS: BP 163/99; PULSE 81; RESP 15; TEMP 97.1; O2SAT 96
[2024-03-15 18:00] VITALS: BP 152/90; PULSE 99; RESP 18; TEMP 98; O2SAT 98
[2024-03-15 20:00] VITALS: RESP 18; O2SAT 96
[2024-03-15 22:00] VITALS: BP 149/78; PULSE 84; RESP 18; TEMP 97.9; O2SAT 94
[2024-03-16] VITALS (7 sets, daily range): BP systolic 133–162; BP diastolic 70–103; PULSE 84–98; RESP 16–20; TEMP 96.7–99.5; O2SAT 95–99
[2024-03-16 06:31] LABS: BASOPHILS # (AUTO) 0.1 X10'3 (0-0.2); BASOPHILS % (AUTO) 0.8 % (0-1); EOSINOPHILS # (AUTO) 0.5 X10'3 (0-0.9); EOSINOPHILS % (AUTO) 3.9 % (0-6); HEMATOCRIT 39.1 % (35.0-45.0); HEMOGLOBIN 12.7 g/dl (12.0-16.0); LYMPHOCYTES # (AUTO) 2.9 X10'3 (1.1-4.8); LYMPHOCYTES % (AUTO) 22.3 % (21-51); MEAN CORPUSCULAR HEMOGLOBIN 28.6 PG (27.0-31.0); MEAN CORPUSCULAR HGB CONC 32.6 g/dL (33.0-36.5); MEAN CORPUSCULAR VOLUME 87.6 FL (78-98); MEAN PLATELET VOLUME 6.8 FL (7.4-10.4); MONOCYTES # (AUTO) 0.8 X10'3 (0-0.9); MONOCYTES % (AUTO) 5.9 % (2-12); NEUTROPHILS # (AUTO) 8.7 X10'3 (1.8-7.7); NEUTROPHILS % (AUTO) 67.1 % (42-75); PLATELET COUNT 501 X10'3 (140-440); RED BLOOD COUNT 4.46 X10'6 (4.20-5.60); RED CELL DISTRIBUTION WIDTH 13.1 % (11.5-14.5)
[2024-03-16 06:50] LABS: ALANINE AMINOTRANSFERASE 29 U/L (12-78); ALBUMIN 2.1 G/DL (3.4-5.0); ALBUMIN/GLOBULIN RATIO 0.4 (1.1-1.5); ALKALINE PHOSPHATASE 123 IU/L (46-116); ANION GAP 8 (8-16); ASPARTATE AMINO TRANSFERASE 20 U/L (10-37); BILIRUBIN,TOTAL 0.3 MG/DL (0.1-1.0); BLOOD UREA NITROGEN 7 MG/DL (7-18); BUN/CREATININE RATIO 9.5 (10.0-20.0); CALCIUM 8.8 MG/DL (8.5-10.1); CHLORIDE 103 MMOL/L (99-107); CREATININE 0.74 MG/DL (0.40-0.90); GLUCOSE 104 MG/DL (70-104); POTASSIUM 4.2 MMOL/L (3.5-5.1); SODIUM 137 MMOL/L (135-145); TOTAL CARBON DIOXIDE 26.2 MMOL/L (24-32); TOTAL PROTEIN 7.2 G/DL (6.4-8.2); eCRCL 90 ML/MIN; eGFR 85 ML/MIN
[2024-03-16] MEDS ORDERED: NYSTATIN 30 GM POWDER TP SCH (20:00)
[2024-03-16] MEDS ORDERED: nystatin 15 GM powder TP SCH (20:20)
[2024-03-16] MEDS: nystatin 15 GM powder TP SCH (20:51)
[2024-03-17 06:16] LABS: BASOPHILS # (AUTO) 0.1 X10'3 (0-0.2); BASOPHILS % (AUTO) 0.5 % (0-1); EOSINOPHILS # (AUTO) 0.5 X10'3 (0-0.9); EOSINOPHILS % (AUTO) 4.3 % (0-6); HEMATOCRIT 37.1 % (35.0-45.0); HEMOGLOBIN 12.2 g/dl (12.0-16.0); LYMPHOCYTES % (AUTO) 23.9 % (21-51); MEAN CORPUSCULAR HEMOGLOBIN 28.7 PG (27.0-31.0); MEAN CORPUSCULAR HGB CONC 32.8 g/dL (33.0-36.5); MEAN CORPUSCULAR VOLUME 87.7 FL (78-98); MEAN PLATELET VOLUME 6.9 FL (7.4-10.4); MONOCYTES % (AUTO) 8.2 % (2-12); NEUTROPHILS % (AUTO) 63.1 % (42-75); PLATELET COUNT 517 X10'3 (140-440); RED BLOOD COUNT 4.23 X10'6 (4.20-5.60); RED CELL DISTRIBUTION WIDTH 12.9 % (11.5-14.5); WHITE BLOOD COUNT 12.6 X10'3 (4.5-11.0)
[2024-03-17 06:39] LABS: ALANINE AMINOTRANSFERASE 38 U/L (12-78); ALBUMIN 2.1 G/DL (3.4-5.0); ALBUMIN/GLOBULIN RATIO 0.4 (1.1-1.5); ALKALINE PHOSPHATASE 138 IU/L (46-116); ANION GAP 9 (8-16); ASPARTATE AMINO TRANSFERASE 32 U/L (10-37); BILIRUBIN,TOTAL 0.3 MG/DL (0.1-1.0); BLOOD UREA NITROGEN 8 MG/DL (7-18); CALCIUM 8.6 MG/DL (8.5-10.1); CHLORIDE 103 MMOL/L (99-107); CREATININE 0.73 MG/DL (0.40-0.90); GLUCOSE 86 MG/DL (70-104); POTASSIUM 4.1 MMOL/L (3.5-5.1); SODIUM 136 MMOL/L (135-145); TOTAL PROTEIN 7.2 G/DL (6.4-8.2); eCRCL 91 ML/MIN; eGFR 86 ML/MIN
[2024-03-17 06:59] VITALS: BP 142/78; PULSE 82; RESP 20; TEMP 97.5; O2SAT 96
[2024-03-17 08:00] VITALS: RESP 18
[2024-03-17 18:45] VITALS: BP 139/98; PULSE 98; RESP 14; TEMP 97.9; O2SAT 93
[2024-03-17 22:00] VITALS: BP 141/95; PULSE 88; RESP 16; TEMP 97.5; O2SAT 93
[2024-03-18 06:00] VITALS: BP 158/93; PULSE 88; RESP 16; TEMP 97.2; O2SAT 94
[2024-03-18 08:30] VITALS: RESP 14; O2SAT 93
[2024-03-18 10:00] VITALS: BP 157/99; PULSE 86; RESP 16; TEMP 99.2; O2SAT 97
[2024-03-18] MEDS ORDERED: CIPR250T26 PO (14:17)
[2024-03-18] MEDS ORDERED: AMOX-580 PO (14:17)
[2024-03-18 14:22] LABS: HIV ANTIBODY 1&2 RAPID NON-REACTIVE (Neg)
[2024-03-18] MEDS: amox tr/potassium clavulanate 875/125mg TAB PO SCH (16:43)
[2024-03-18 18:40] VITALS: BP 187/101; PULSE 95; RESP 20; TEMP 97.5; O2SAT 94
[2024-03-18] MEDS: ciprofloxacin 250mg tablet PO SCH (21:43)
[2024-03-19 06:00] VITALS: BP 151/87; PULSE 90; RESP 18; TEMP 97.9; O2SAT 93
[2024-03-19 08:00] VITALS: RESP 18; O2SAT 93
[2024-03-19 09:17] LABS: BASOPHILS # (AUTO) 0.1 X10'3 (0-0.2); BASOPHILS % (AUTO) 0.4 % (0-1); EOSINOPHILS # (AUTO) 0.4 X10'3 (0-0.9); EOSINOPHILS % (AUTO) 2.9 % (0-6); HEMATOCRIT 39.7 % (35.0-45.0); HEMOGLOBIN 12.9 g/dl (12.0-16.0); LYMPHOCYTES # (AUTO) 2.6 X10'3 (1.1-4.8); LYMPHOCYTES % (AUTO) 18.4 % (21-51); MEAN CORPUSCULAR HEMOGLOBIN 28.5 PG (27.0-31.0); MEAN CORPUSCULAR HGB CONC 32.6 g/dL (33.0-36.5); MEAN CORPUSCULAR VOLUME 87.6 FL (78-98); MEAN PLATELET VOLUME 6.7 FL (7.4-10.4); MONOCYTES # (AUTO) 0.8 X10'3 (0-0.9); MONOCYTES % (AUTO) 5.7 % (2-12); NEUTROPHILS # (AUTO) 10.1 X10'3 (1.8-7.7); NEUTROPHILS % (AUTO) 72.6 % (42-75); PLATELET COUNT 532 X10'3 (140-440); RED BLOOD COUNT 4.54 X10'6 (4.20-5.60); RED CELL DISTRIBUTION WIDTH 13.3 % (11.5-14.5)
[2024-03-19 09:35] LABS: ALANINE AMINOTRANSFERASE 50 U/L (12-78); ALBUMIN 2.3 G/DL (3.4-5.0); ALBUMIN/GLOBULIN RATIO 0.4 (1.1-1.5); ALKALINE PHOSPHATASE 167 IU/L (46-116); ANION GAP 9 (8-16); ASPARTATE AMINO TRANSFERASE 37 U/L (10-37); BILIRUBIN,TOTAL 0.3 MG/DL (0.1-1.0); BLOOD UREA NITROGEN 7 MG/DL (7-18); BUN/CREATININE RATIO 8.9 (10.0-20.0); CHLORIDE 103 MMOL/L (99-107); CREATININE 0.79 MG/DL (0.40-0.90); GLUCOSE 159 MG/DL (70-104); POTASSIUM 4.1 MMOL/L (3.5-5.1); SODIUM 137 MMOL/L (135-145); TOTAL CARBON DIOXIDE 24.6 MMOL/L (24-32); TOTAL PROTEIN 7.7 G/DL (6.4-8.2); eCRCL 84 ML/MIN; eGFR 79 ML/MIN
[2024-03-19] MEDS ORDERED: CIPR-259 PO (10:05)
== END 2024-03-19 10:50 | disposition home health service (06) | DRG 711 ==
LOC: ER 21:40 → ED HOLD 03-12 05:31 → ORTHO 4S 03-12 08:15 → SUR 3N 03-12 16:35
PROVIDERS: ADMIT Student in an Organized Health Care Education/Training Program; ATTEND Internal Medicine
PROC: BW211ZZ Computerized Tomography (CT Scan) of Abdomen and Pelvis using Low Osmolar Contrast (ICD-10-PCS; 2024-03-12)
PROC: 0JD80ZZ Extraction of Abdomen Subcutaneous Tissue and Fascia, Open Approach (ICD-10-PCS; principal; 2024-03-12 13:55)
DX: T81.49XA Infection following a procedure, other surgical site, initial encounter (principal); T81.31XA Disruption of external operation (surgical) wound, not elsewhere classified, initial encounter; E66.01 Morbid (severe) obesity due to excess calories; K57.92 Diverticulitis of intestine, part unspecified, without perforation or abscess without bleeding; K94.23 Gastrostomy malfunction; Y83.8 Other surgical procedures as the cause of abnormal reaction of the patient, or of later complication, without mention of misadventure at the time of the procedure; Y82.8 Other medical devices associated with adverse incidents; D75.839 Thrombocytosis, unspecified; D72.829 Elevated white blood cell count, unspecified; K21.9 Gastro-esophageal reflux disease without esophagitis; I10 Essential (primary) hypertension; Z68.41 Body mass index [BMI] 40.0-44.9, adult; Z90.49 Acquired absence of other specified parts of digestive tract; Y92.89 Other specified places as the place of occurrence of the external cause; Z98.891 History of uterine scar from previous surgery
CPT/HCPCS: 36415; 74177; 80048; 80053; 80305; 81003; 82948; 83605; 83690; 84145; 85025; 86703; 87040; 87070; 87075; 87077; 87081; 87186; 99285; A4338; A4340; A4353; A4615; A4618; A4624; A4649; A6223; A6253; A6258; A6446; A6449; A7000; C1758; G0378; J0696; J1100; J1170; J2250; J2270; J2405; J2543; J2704; J3010; J3370; J3490; J7030; J7040; J7120; Q9963; Q9967